=== PATIENT | female | born 1965 | race Caucasian/White ===

== ENCOUNTER 2022-11-24 22:15 | Emergency (ER) | payer OTHER ==
[2022-11-24 22:49] LABS: BASOPHILS % (AUTO) 0.3 %; EOSINOPHILS # (AUTO) 0.2 10^3/uL (0.0-0.7); EOSINOPHILS % (AUTO) 1.1 %; HGB - HEMOGLOBIN 12.1 g/dL (12.0-16.0); LYMPHOCYTES # (AUTO) 1.3 10^3/uL (1.5-3.5); LYMPHOCYTES % (AUTO) 10.1 %; MEAN CORPUSCULAR HEMOGLOBIN 32.5 pg (27.0-31.0); MEAN CORPUSCULAR HGB CONC 35.6 g/dL (32.0-36.0); MEAN CORPUSCULAR VOLUME 91.4 fL (81.0-99.0); MEAN PLATELET VOLUME 9.8 fL (7.9-10.8); MONOCYTES # (AUTO) 0.7 10^3/uL (0.0-1.0); MONOCYTES % (AUTO) 5.5 %; NEUTROPHILS # (AUTO) 10.9 10^3/uL (1.5-6.6); NEUTROPHILS % (AUTO) 82.6 %; PLT - PLATELET COUNT 206 10^3/uL (130-450); RED BLOOD COUNT 3.72 10^6/uL (4.20-5.40); RED CELL DISTRIBUTION WIDTH 11.7 % (12.0-15.0); WHITE BLOOD COUNT 13.2 x10^3/uL (4.8-10.8)
[2022-11-24 23:04] LABS: ALBUMIN/GLOBULIN RATIO 1.3 (1.0-2.2); BILIRUBIN,TOTAL 0.6 mg/dL (0.2-1.0); CALCIUM 9.4 mg/dL (8.5-10.3); CREATININE 0.5 mg/dL (0.4-1.0); POTASSIUM 3.5 mmol/L (3.5-5.0)
[2022-11-24] MEDS ORDERED: KETOROLAC 30 MG/ML VIAL IVP STA (23:21)
--- NOTE | 2022-11-24 23:23 | ED Physician Documentation ---
PD HPI ABD PAIN - Stated complaint Stated Complaint: CONSTIPATED, ABD PX - Chief complaint Chief Complaint: Abd Pain - History obtained from History obtained from: Patient - History of Present Illness Timing - onset: How many days ago (4) Timing - details: Gradual onset, Waxing and waning Quality: Pain Location: All over / everywhere Improved by: Other (warm bath) Worsened by: Other (no exacerbating factors) Associated symptoms: Nausea, Constipation. No: Fever, Vomiting - Treatment prior to arrival Treatment prior to arrival: HPI is from patient. Patient complains of generalized cramping abdominal pain, gradual onset 3 to 4 days ago, steadily increasing in intensity and duration of episodes. She says her last bowel movement was 4 days ago and thus she is confident that her symptoms are due to constipation. She says she has not had this problem before. She has had nausea but no vomiting. She has tried milk of magnesia, MiraLAX, Senokot, as well as enemas, none of which have produced any results.Past surgical history includes hysterectomy. 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 - Present Medications Home Medications: Ambulatory Orders Medication Instructions Recorded Confirmed Sodium/Potassium/Mag Sulfates 354 ml PO ONCE #1 kit 11/25/22 [Suprep Bowel Prep Kit] - Allergies Allergies/Adverse Reactions: Allergies Allergy/AdvReac Type Severity Reaction Status Date / Time acetaminophen [From Vicodin] Allergy Anaphylaxis Verified 11/24/22 22:20 codeine Allergy Anaphylaxis Verified 11/24/22 22:20 hydrocodone [From Vicodin] Allergy Anaphylaxis Verified 11/24/22 22:20 - Living Situation Living Arrangement: reports: At home PD ED PE NORMAL - Vitals Vital signs reviewed: Yes - General General: Alert and oriented X 3, Well developed/nourished, Other (Appears uncomfortable, mild to moderate painful distress) - HEENT HEENT: Moist mucous membranes - Cardiac Cardiac: RRR, No murmur - Abdomen Abdomen: Normal bowel sounds, Soft, Non distended, Other (Mild tenderness to palpation diffusely, greatest across the lower abdomen, and most pronounced in the left lower quadrant. There is no guarding nor rebound tenderness. No palpable masses.) - Derm Derm: Normal color, Warm and dry Results - Vitals Vitals: Vital Signs - 24 hr 11/24/22 11/24/22 11/25/22 22:20 22:23 00:23 Temperature 36.5 C Heart Rate 100 76 74 Respiratory 16 15 18 Rate Blood Pressure 129/77 121/84 H O2 Saturation 96 98 99 11/25/22 11/25/22 01:35 03:00 Temperature Heart Rate 63 Respiratory 18 Rate Blood Pressure 109/79 116/86 H O2 Saturation 100 Oxygen O2 Source Room air - Labs Labs: Laboratory Tests 11/24/22 11/24/22 22:45 22:45 WBC 13.2 H RBC 3.72 L Hgb 12.1 Hct 34.0 L MCV 91.4 MCH 32.5 H MCHC 35.6 RDW 11.7 L Plt Count 206 MPV 9.8 Neut # (Auto) 10.9 H Lymph # (Auto) 1.3 L [place] # (Auto) 0.7 Eos # (Auto) 0.2 Baso # (Auto) 0.0 Absolute Nucleated RBC 0.00 Nucleated RBC % 0.0 Sodium 139 Potassium 3.5 Chloride 104 Carbon Dioxide 25 Anion Gap 10.0 BUN 14 Creatinine 0.5 Estimated GFR (MDRD) 126 Glucose 141 H Calcium 9.4 Total Bilirubin 0.6 AST 13 ALT 13 Alkaline Phosphatase 54 Total Protein 7.0 Albumin 4.0 Globulin 3.0 Albumin/Globulin Ratio 1.3 Lipase 26 - Rads (name of study) CT A/P with IV contrast Radiology: Prelim report reviewed, See rad report PD Medical Decision Making - ED course Complexity details: reviewed results, re-evaluated patient, considered differential, d/w patient ED course: Tests ordered and results reviewed by me: CBC, ER abdominal panel. A CT of the abdomen and pelvis with IV contrast was also performed. There are no remarkable results on the blood tests; There is a mild leukocytosis with white blood cell count of 13.2. CT abdomen and pelvis only shows nonspecific finding suggestive of gastroenteritis (specifically, the radiologist comments "prominent gaseous distention throughout the colon with air-fluid levels proximally. The findings are nonspecific but suggestive of a gastroenteritis. No evidence of obstruction. No evidence of appendicitis.") Early in stay she is given IV toradol, but reports no improvement when I reevaluate her. On reevaluation, we discussed test results. She is given 4mg IV morphine for the pain and I performed a manual disimpaction , only able to remove small amount of stool but I felt I was able to break up the clot of stool that was in the rectal vault (not enough within reach to remove), which hopefully will make it easier to pass once she is home. A glycerin suppository is provided for her to take when she gets home (I instructed her to put it in her refrigerator so that it does not melt). And I provided a prescription for a bowel prep kit. I instructed her to fruit picker the bowel prep kit then insert the glycerin suppository and then take the first bottle of the bowel prep as per the instructions. This should result in adequate resolution of her excess stool and gas. She is given usual return precautions Departure - Departure Disposition: 01 Home, Self Care Clinical Impression: Constipation Qualifiers: Constipation type: unspecified constipation type Qualified Code(s): K59.00 - Constipation, unspecified Condition: Good Instructions: ED Constipation Follow-Up: TOYA LAURA MD [Primary Care Provider] - Prescriptions: Sodium/Potassium/Mag Sulfates [Suprep Bowel Prep Kit] 354 ml PO ONCE #1 kit Comments: There were no concerning finding on tonight's tests including the blood tests and the CT scan of the abdomen and pelvis. The CT scan did not show any evidence of obstruction. The radiologist sees a fair amount of gas distending the colon and points out that this is a nonspecific finding but one of the possible explanations would be gastroenteritis. Gastroenteritis is an inflammatory problem with the stomach and the small intestines. Gastroenteritis has many possible causes, but the most common are benign (such as a virus). At this time, there is no specific treatment indicated (such as an antibiotic). Follow-up with your primary care provider for reevaluation. There was a moderate amount of stool throughout the colon, and thus you are being provided a glycerin suppository. You should place this in your refrigerator, as they tend to melt at room temperature. I have electronically submitted a prescription for a bowel prep to [facility] pharmacy in [place] Once you have obtained the bowel prep kit and are ready to use it, first insert glycerin suppository into rectum. Then, follow the instructions on the bowel prep kit. Drink the first bottle as per the kit instructions. You should mix the solution with a powdered drink (such as crystal lite or zaida aid) but do not use any red , blue, or purple powdered mix (this can sometimes cause the output to be discolored and can lead to confusion as to whether there is blood or just discoloration from the powdered mix). You can just use water to dilute the solution, but it can be more easily tolerated for most people if a powdered mix is used. If you do not feel adequately emptied out, you can use the second bottle in the kit, but wait 6-12 hours before doing so. Drink plenty of fluids before, during, and after the prep; dehydration is one of the potential complications of using such a powerful laxative. Follow-up with your primary care provider if you feel that you are still not adequately cleared out after using this bowel prep. Realize that if you are not having clear or slightly brown-yellow liquid output, you have likely illuminated what ever stool was causing the constipation. Discharge Date/Time: 11/25/22 03:27
[2022-11-24] MEDS ORDERED: iohexoL-300 100 ML VIAL ONE (23:59)
--- NOTE | 2022-11-25 01:17 | CT Report ---
PROCEDURE: ABDOMEN/PELVIS W INDICATIONS: abdominal pain CONTRAST: Omni 300 100 TECHNIQUE: After the administration of intravenous contrast, 5 mm thick sections acquired from the diaphragms to the symphysis. 5 mm thick coronal and sagittal reformats were acquired. For radiation dose reducti on, the following was used: automated exposure control, adjustment of mA and/or kV according to shiv ent size. COMPARISON: None available. FINDINGS: Image quality: Excellent. Lung bases:There is mild dependent atelectasis bilaterally. Heart: Heart is normal in size. ABDOMEN: Liver: No mass lesion. Gallbladder: Within normal limits without calcified gallstones. Biliary ducts: No biliary ductal dilatation. Pancreas: Unremarkable. Spleen: Normal in size. Adrenal Glands: No adrenal nodules. Kidneys and Ureters: No hydronephrosis. Stomach and Bowel: Stomach and small bowel loops are normal in caliber and wall thickness. There is prominent gaseous distention throughout the colon with a few air-fluid levels in the descending colon . There is mild to moderate stool distention in the rectosigmoid colon. Appendix is normal in appeara nce. Peritoneum: No abnormal intraperitoneal fluid. No free air. Ventral Wall: No hernia. Abdominal Nodes: No retroperitoneal or mesenteric adenopathy by size criteria. Vessels: Aorta and inferior vena cava are normal in size. PELVIS: Pelvic Organs:Uterus is surgically absent. Bladder: Unremarkable. Pelvic Nodes: No enlarged lymph nodes. Miscellaneous: No inguinal hernias. Bones: Visualized osseous structures demonstrate no suspicious lesions. IMPRESSION: 1. Prominent gaseous distention throughout the colon with air-fluid levels proximally. The findings a re nonspecific but suggestive of a gastroenteritis. No evidence of obstruction. 2. No evidence of appendicitis. Reviewed by: Desmond Lechuga MD on 11/25/2022 1:15 AM [facility] Approved by: Desmond Lechuga MD on 11/25/2022 1:15 AM [facility] Station ID: [id number]
[2022-11-25] MEDS ORDERED: MORPHINE 2 MG/ML CARPUJECT IVP STA (02:13)
[2022-11-25] MEDS ORDERED: iohexoL-300 100 ML VIAL IVP ONE (03:13)
[2022-11-25 03:15] VITALS: BP 116/86
[2022-11-25] MEDS ORDERED: GLYCERIN ADULT SUPP PR STA (03:15)
== END 2022-11-25 03:27 | disposition home or self-care (01) ==
LOC: ED 22:15
DX: K59.00 Constipation, unspecified (principal); E03.9 Hypothyroidism, unspecified
CPT/HCPCS: 36415; 74177; 80053; 83690; 85025; 96374; 96375; 99283; 99284; A9270; Q9967